=== PATIENT | male | born 1975 | race Caucasian/White ===

== ENCOUNTER → 2016-05-26 06:35 | Day surgery (SDC) | payer BC, OTHER ==
[~2016-05-26 06:35] MED LIST: BSS OPTH.SOL* BTL ONE; Buffered Lidocaine 1% SYRIN* 3 ML/SYR SYRINGE INTRADERM ONE; Dexamethasone IV* 4 MG/ML 1 ML (4 MG) ONE; DiMENhydriNATE IV* 50 MG/ML VIAL IV PUSH PRN; Famotidine TAB* 20 MG ONE; Famotidine TAB* 20 MG PO ONE; Ketorolac INJ* 30 MG/ML 1 ML VIAL IV PRN; Lidocaine 2% PF* 5 ML VIAL ONE; Metoclopramide TAB* 10 MG ONE; Metoclopramide TAB* 10 MG PO ONE; Midazolam* 1 MG/ML 2 ML VIAL (2 MG) ONE; Neomycin/Polymy/Dex OPHTH.OIN* 3.5 GM ONE; Ondansetron INJ* 2 MG/ML VIAL ONE; Phenylephrine 2.5% OPTH.SOL* 2 ML BTL ONE; Propofol* 10 MG/ML 20 ML BTL IV PUSH ONE; Scopolamine 1.5 mg* PATCH ONE; Scopolamine 1.5 mg* PATCH TRANSDERM ONE; Sodium Citrate/Citric Acid* 15 ML UDC ONE; Sodium Citrate/Citric Acid* 15 ML UDC PO ONE; Succinylcholine* 20 MG/ML 10 ML VIAL ONE; Tetracaine 0.5% OPTH.SOL 15ML* BTL ONE; fentaNYL* 50 MCG/ML 2 ML VIAL (100 MCG VIAL) IV PRN; fentaNYL* 50 MCG/ML 2 ML VIAL (100 MCG VIAL) ONE; oxyCODONE/Acetamin 5/325 MG* TAB ONE; oxyCODONE/Acetamin 5/325 MG* TAB PO PRN
[2016-05-26 09:39] VITALS: BP 142/88
--- NOTE | 2016-05-26 12:51 | OP ---
OPERATIVE REPORT: DATE OF OPERATION: 05/26/16 DATE OF : 79 SURGEON: Jarrell Garvin MD PHYSICIAN ASSISTANT SURGERY: None. ANESTHESIA: General. PRE-OP DIAGNOSES: Left hypotropia, Graves' disease. POST-OP DIAGNOSES: Restrictive left hypotropia, Graves' disease. OPERATIVE PROCEDURE: Explore and recess left inferior rectus muscle. COMPLICATIONS: None. BLOOD LOSS: Minimal. DESCRIPTION OF PROCEDURE: The patient was brought to the operating room and received general anesth esia without any complications. A drop of tetracaine was placed in each eye and a drop of phenyleph rine was placed in his left eye. The patient was prepped and draped in the usual sterile fashion fo r ophthalmic surgery. The speculum was placed in the right eye where forced ductions were performed and found to be normal. The speculum was removed and replaced into the left eye where forced ductio ns were performed and showed significant restriction to elevation. Given the difficulty in elevating the eye, it was decided that a limbal peritomy would afford the easiest access to the inferior rect us muscle. A marking pen was used to lidia the 4 and 8 o'clock position of the left eye's conjunctiv a near the limbus. A limbal peritomy was performed with a Lizette scissors between these 2 stoll. A radial extension at the 4 o'clock position was created with the Lizette scissors. Tenon's capsu le was violated and the inferior rectus muscle was isolated on a Kilo muscle hook. The opposite aspect of the muscle was cleaned and the hook was brought through fully. The conjunctiva was reflec nabil over the surface of the muscle. Care was taken to clean the inferior-anterior aspect of the mus alfredo and lyse any adhesions to the lid retractor muscles. It was exceptionally difficult to elevate the eye as the restrictive process was significant, so a [place] muscle clamp was placed across the muscle near its insertion and the hook was removed. The muscle was atraumatically disinserted from t he globe using Lizette scissors. Gentle cauterization of the original insertion site yielded comple te hemostasis. The original insertion site was grasped with locking forceps. Forced ductions were performed and found to be much more normal. A double-armed 6-0 Vicryl suture was woven throug h the distal stump of muscle and locked at either end. The muscle clamp was removed. The muscle wa s inspected and found to be well held by the sutures. The needles were then passed through the orig inal insertion site. The suture was allowed to hang back approximately 5.5 mm. The suture was tied securely at this point and trimmed. The muscle was reinspected and noted to be approximately 5.5 m m posterior to the original insertion and parallel to it. The locking forceps were removed and the c onjunctiva was closed with interrupted 6- 0 gut sutures. Forced ductions were performed one more ti ok, which revealed essentially normal motility. The speculum was removed. Topical tetracaine follo wed by Maxitrol ointment was placed in the left eye. The patient was awakened uneventfully and sent to recovery room in stable condition with postoperative instructions and followup appointment given . [id number]/[facility] #: [id number]
== END | disposition home or self-care (01) ==
LOC: OREAST 06:35
PROVIDERS: ATTEND Ophthalmology
DX: H50.22 Vertical strabismus, left eye (principal); E05.00 Thyrotoxicosis with diffuse goiter without thyrotoxic crisis or storm; E03.9 Hypothyroidism, unspecified; Z88.0 Allergy status to penicillin
CPT/HCPCS: A9270-GY; J0330; J1100; J2250; J2405; J2704; J3010